=== PATIENT | female | born 1955 | race Caucasian/White ===

== ENCOUNTER 2022-07-19 10:52 | Day surgery (SDC) | payer MEDICARE, OTHER ==
[~2022-07-19] VITALS: Ht 157.5 cm; Wt 98.6 kg
[2022-07-19] VITALS (14 sets, daily range): BP systolic 121–175; BP diastolic 61–92
[2022-07-19] MEDS ORDERED: fentaNYL/PF 50MCG/1 ML 2ML syringe IV ONE (11:35)
[2022-07-19] MEDS ORDERED: MIDAZolam 1mg/ml 10ml vial IV ONE (11:35)
[2022-07-19] MEDS ORDERED: normal saline 1000ml 1,000 ML IV SCH (11:35)
[2022-07-19] MEDS ORDERED: METF-436 PO (11:44)
[2022-07-19] MEDS ORDERED: IBUP-1984 PO (11:44)
[2022-07-19] MEDS ORDERED: ALBU8HFA PO (11:44)
[2022-07-19] MEDS ORDERED: MAGN296S70 PO (11:44)
[2022-07-19] MEDS ORDERED: METO-395 PO (11:44)
[2022-07-19] MEDS ORDERED: LIDO700A47 TOP (11:44)
[2022-07-19] MEDS ORDERED: ASPI-611 PO (11:44)
[2022-07-19] MEDS ORDERED: ATOR40TA72 PO (11:44)
[2022-07-19] MEDS ORDERED: TURM500C4 PO (11:44)
[2022-07-19] MEDS ORDERED: CALC1TAB PO (11:44)
[2022-07-19] MEDS ORDERED: ACET-2971 PO (11:44)
[2022-07-19] MEDS ORDERED: TRIA1TAB3 PO (11:44)
[2022-07-19] MEDS ORDERED: TELM80TA9 PO (11:44)
[2022-07-19] MEDS ORDERED: PSYL0.4C2 PO (11:44)
[2022-07-19] MEDS ORDERED: FAMO20TA8 PO (11:44)
[2022-07-19] MEDS ORDERED: OMEG1CAP13 PO (11:44)
[2022-07-19] MEDS ORDERED: LIDOcaine 1% (10mg/ml) 2ml vial ONE (12:27)
[2022-07-19] MEDS ORDERED: LIDOcaine 1% (10mg/ml) 2ml vial SQ ONE (13:05)
== END 2022-07-19 16:05 | disposition home or self-care (01) ==
LOC: SSTAY O 10:52 → EDSTATUS 14:00 → SSTAY O 16:05
PROVIDERS: ATTEND Student in an Organized Health Care Education/Training Program
DX: I34.1 Nonrheumatic mitral (valve) prolapse (principal); I34.0 Nonrheumatic mitral (valve) insufficiency; I10 Essential (primary) hypertension; Z79.82 Long term (current) use of aspirin; Z79.899 Other long term (current) drug therapy; Z98.890 Other specified postprocedural states
CPT/HCPCS: 93312; 93325; 94799; J2250; J3010; J3490; J7030; A4620

== ENCOUNTER 2022-09-27 10:24 | Day surgery (SDC) | payer MEDICARE, OTHER ==
[2022-09-22 09:40] LABS: BASOPHILS # (AUTO) 0.1 X10'3 (0-0.2); BASOPHILS % (AUTO) 1.2 % (0-1); EOSINOPHILS # (AUTO) 0.1 X10'3 (0-0.9); EOSINOPHILS % (AUTO) 1.1 % (0-6); HEMATOCRIT 38.4 % (35.0-45.0); HEMOGLOBIN 12.7 g/dl (12.0-16.0); LYMPHOCYTES # (AUTO) 1.1 X10'3 (1.1-4.8); LYMPHOCYTES % (AUTO) 13.7 % (21-51); MEAN CORPUSCULAR HEMOGLOBIN 30.6 PG (27.0-31.0); MEAN CORPUSCULAR HGB CONC 33.1 g/dL (33.0-36.5); MEAN CORPUSCULAR VOLUME 92.5 FL (78-98); MEAN PLATELET VOLUME 7.4 FL (7.4-10.4); MONOCYTES # (AUTO) 0.5 X10'3 (0-0.9); MONOCYTES % (AUTO) 6.5 % (2-12); NEUTROPHILS # (AUTO) 6.5 X10'3 (1.8-7.7); NEUTROPHILS % (AUTO) 77.5 % (42-75); PLATELET COUNT 287 X10'3 (140-440); RED BLOOD COUNT 4.15 X10'6 (4.20-5.60); RED CELL DISTRIBUTION WIDTH 14.7 % (11.5-14.5); WHITE BLOOD COUNT 8.3 X10'3 (4.5-11.0)
[2022-09-22 09:50] LABS: APTT 27 SECONDS (22-32)
[2022-09-22 10:52] LABS: ALBUMIN 4.1 G/DL (3.4-5.0); BLOOD UREA NITROGEN 25 MG/DL (7-18); BUN/CREATININE RATIO 33.3 (6.6-38.0); CALCIUM 8.9 MG/DL (8.5-10.1); CHLORIDE 96 MMOL/L (99-107); CHOL/HDL RATIO 2.1 (0.00-4.99); CHOLESTEROL 144 MG/DL (0-200); CREATININE 0.75 MG/DL (0.40-0.90); GLUCOSE 110 MG/DL (70-104); HDL CHOLESTEROL 69 MG/DL (35-60); LDL CHOLESTEROL 65 MG/DL (50-100); POTASSIUM 3.7 MMOL/L (3.5-5.1); TOTAL CARBON DIOXIDE 24.5 MMOL/L (24-32); TRIGLYCERIDES 57 MG/DL (20-135); eGFR 77 ML/MIN
[2022-09-22 11:04] LABS: ANION GAP 12 (8-16); SODIUM 132 MMOL/L (135-145)
[~2022-09-27] VITALS: Ht 157.5 cm; Wt 97.3 kg
[2022-09-27] VITALS (8 sets, daily range): BP systolic 141–182; BP diastolic 57–99
[~2022-09-27 10:24] MED LIST: ACET-2971 PO; ALBU8HFA PO; ASPI-611 PO; ATOR40TA72 PO; CALC1TAB PO; FAMO20TA8 PO; IBUP-1984 PO; LIDO700A47 TOP; MAGN296S PO; METF-436 PO; METO-395 PO; OMEG-5 PO; PSYL0.4C2 PO; TELM80TA9 PO; TRIA1TAB3 PO; TURM500C4 PO
[2022-09-27] MEDS ORDERED: diphenhydrAMINE 25mg capsule PO PRN (10:50)
[2022-09-27] MEDS ORDERED: LORazepam 0.5 MG tablet PO PRN (10:50)
[2022-09-27] MEDS ORDERED: normal saline 1,000 ML IV SCH (10:50)
[2022-09-27] MEDS ORDERED: nitroGLYCERIN-Tridil 50MG/D5W 250 ML IV ONE (12:32)
[2022-09-27] MEDS ORDERED: midazolam 1 mg/ML 2ml injection ONE (12:32)
[2022-09-27] MEDS ORDERED: verapamil 2.5 mg/ml inj IV ONE (12:32)
[2022-09-27] MEDS ORDERED: fentaNYL/PF 50MCG/1 ML 2ML syringe ONE (12:32)
[2022-09-27] MEDS ORDERED: LIDOcaine 1% (10mg/ml) 2ml vial ONE (12:32)
[2022-09-27] MEDS ORDERED: iohexol 350MG/ML 100ml bottle IV ONE (12:33)
[2022-09-27] MEDS ORDERED: heparin 1,000unit/ml 10ml vial 10 ML ONE (12:33)
[2022-09-27] MEDS ORDERED: LIDOcaine 1% 30ml preserv. free vial ONE (12:52)
[2022-09-27] MEDS ORDERED: heparin 1,000 UNITS/NS 500ml 500 ML ONE (13:16)
[2022-09-27] MEDS ORDERED: HYDROcodone/acetaminophen 10/325mg tab PO PRN (14:05)
[2022-09-27] MEDS ORDERED: HYDROcodone/acetaminophen 5mg/325mg tablet PO PRN (14:05)
== END 2022-09-27 16:40 | disposition home or self-care (01) ==
LOC: SSTAY O 10:24
PROVIDERS: ATTEND Student in an Organized Health Care Education/Training Program
DX: I34.0 Nonrheumatic mitral (valve) insufficiency (principal); I10 Essential (primary) hypertension; E78.5 Hyperlipidemia, unspecified; I35.0 Nonrheumatic aortic (valve) stenosis; J45.998 Other asthma; Z85.3 Personal history of malignant neoplasm of breast; Z90.13 Acquired absence of bilateral breasts and nipples; Z98.890 Other specified postprocedural states; Z79.899 Other long term (current) drug therapy; Z79.82 Long term (current) use of aspirin; Z79.01 Long term (current) use of anticoagulants
CPT/HCPCS: 36415; 80048; 80061; 85025; 85610; 85730; 93005; 93460; 99152; 99153; C1751; C1769; C1894; J1644; J2250; J3010; J3490; J7030; Q0163; Q9967; A6258; A6449